=== PATIENT | male | born 1960 | race Caucasian/White ===

== ENCOUNTER 2018-11-10 15:45 | Emergency (ER) | payer BC ==
[~2018-11-10] VITALS: Ht 177.8 cm; Wt 81.8 kg
[~2018-11-10 15:45] MED LIST: ASPI81TA52 PO; BENA40TA56 PO; CRES20 PO; HYDR25TA6 PO
[2018-11-10] MEDS ORDERED: SOD CHLORIDE 0.9% 1,000 ML IV STA (15:48)
[2018-11-10 16:00] VITALS: Ht 177.8 cm; Wt 81.8 kg
[2018-11-10] MEDS ORDERED: DILTIAZEM 25 MG INJ IV ONE (16:00)
[2018-11-10] MEDS ORDERED: ADENOSINE 6 MG INJ IV STA ×2 (16:06)
--- NOTE | 2018-11-10 16:15 | ERD ---
ER Documentation Chief Complaint Chief Complaint INCREASE HEART RATE ( SVT) HPI This is a 58-year-old male with a past medical history of coronary artery disease and 2 cardiac stents. The patient has had episodes of SVT in the past. The patient states he missed his dose of diltiazem yesterday which he takes orally. His prior to arrival the patient stated he experienced palpitations. 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 He immediately came to the emergency department. He denies any chest pain. He has no shortness of breath. He denies any nausea. ROS All systems reviewed and are negative except as per history of present illness. Medications Home Meds Reported Medications Aspirin (Low Dose Aspirin) 81 Mg Tablet.dr, 81 MG PO DAILY, #30 TAB 12/23/15 Rosuvastatin Calcium* (Crestor*) 20 Mg Tablet, 20 MG PO QHS, #30 TAB 08/01/15 Benazepril Hcl* (Benazepril Hcl*) 40 Mg Tablet, 40 MG PO DAILY, #30 TAB 08/01/15 Hydrochlorothiazide* (Hydrochlorothiazide*) 25 Mg Tab, 25 MG PO DAILY, #30 TAB 08/01/15 Allergies Allergies: Coded Allergies: No Known Allergy (Unverified , 12/23/15) PMhx/Soc History of Surgery: Yes (LEFT INGUINALM HERNIA) Anesthesia Reaction: No Hx Neurological Disorder: No Hx Respiratory Disorders: No Hx Cardiac Disorders: Yes (CORONARY STENTS X2,SVT) Hx Psychiatric Problems: No Hx Miscellaneous Medical Probl: Yes Hx Alcohol Use: Yes Hx Substance Use: No Hx Tobacco Use: No Physical Exam Vitals Vital Signs Date Temp Pulse Resp B/P (MAP) Pulse Ox O2 O2 Flow FiO2 Time Delivery Rate 11/10/18 98.0 178 19 153/113 100 16:00 (126) Physical Exam Constitutional:Well-developed. Well-nourished. Respiratory: Not using accessory muscles of respiration.Lungs were clear to auscultation bilaterally. No rhonchi. No rales. No wheezing. Cardiovascular: Tachycardic with regular rhythm.No murmurs. No rubs were appreciated.S1, S2 normal. Distal pulses are palpable 2+ bilaterally. NEURO: Patient was alert, awake, orientated x3. Gait observed and normal with no ataxia.Speech had regular rate and rhythm. No focal neurological deficits. Results 24 hrs Current Medications Medications Dose Sig/Noel Start Time Status Last (Trade) Ordered Route PRN Stop Time Admin Dose Reason Admin Diltiazem 20 mg ONCE ONCE 11/10/18 DC 11/10/18 HCl IV 16:00 11/10/18 15:50 (Cardizem Iv) 16:01 Sodium 1,000 ml @ Q1H STAT 11/10/18 11/10/18 Chloride 1,000 mls/hr IV 15:48 11/10/18 15:50 16:47 Procedures/MDM To the emergency department with SVT. ACLS protocol was followed. Patient was admitted placed on desk monitor continuous pulse oximetry and IV access was established by nursing staff. 12 Lead EKG tracing ordered and reviewed by myself showed: Tachycardic with heart rate of 174 bpm and no arrhythmia. GA interval shortened at 104 ms QRS duration [address] segment elevation No ST segment depression. No changes consistent with acute ischemia. The patient was initially given diltiazem. He was given 20 mg of diltiazem intravenously. His heart rate had only slightly improved to 156. Therefore at this time the patient will be given adenosine. He was initially given 6 mg of adenosine. He remained on a desk monitor during the entire procedure. Departure Diagnosis: Primary Impression: SVT (supraventricular tachycardia) Condition: [place] Lee MD November 10, 2018 16:15
[2018-11-10 16:31] VITALS: BP 142/91; PULSE 85; RESP 22
== END 2018-11-10 16:57 | disposition home or self-care (01) ==
LOC: E/R 15:45
DX: I47.1 Supraventricular tachycardia (principal); I25.10 Atherosclerotic heart disease of native coronary artery without angina pectoris; Z98.61 Coronary angioplasty status; Z79.82 Long term (current) use of aspirin
CPT/HCPCS: 93005; 96374; 96375; 99284; J0153; J7030